=== PATIENT | male | born 1955 | race Caucasian/White ===

== ENCOUNTER 2017-05-02 02:07 | Inpatient (IN) | payer OTHER ==
--- NOTE | ~2017-05-02 | HP ---
History And Physical [facility] [address] [place]. [address] NAME: ROSELIA WU : 51 STATUS : ADM IN [facility]#: [id number] AGE: 62 ADM/REG DATE : 05/02/17 MR#: [id number] REPORT SERV DATE: 05/02/17 DICTATED BY: SANTINO FERMIN DATE: 05/02/17 REPORT STATUS : Draft TRANSCRIBED BY: MODL DATE: 05/02/17 DATE OF ADMISSION: 05/02/2017 ADMISSION DIAGNOSIS: Myocardial infarction. HISTORY OF PRESENT ILLNESS: Mr. Wu is a very pleasant 62-year-old male, who presented to [facility] via transfer from [facility] in [place], [place], for management of inferior myocardial infarction. He has no medical history and no cardiovascular history, but experienced what he describes as a pressure in his chest starting approximately 5 hours ago at 9:00 p.m. This involved the medial aspect of his left arm with a pain near his elbow and felt like indigestion in his opinion. Due to these symptoms, he presented to his local ER where an EKG was suggestive of ST elevations inferiorly. Given these findings, a code STEMI was activated and I discussed the case with the ER physician. Based on the description EKG in the clinical history, I agreed to bring the patient in for emergent cardiac catheterization. I briefly triaged him upon arrival to pathology laboratory director and confirmed the above history. He denied any palpitation, shortness of breath, syncope, nausea or vomiting. PAST MEDICAL HISTORY: The patient denies any chronic medical conditions. PAST SURGICAL HISTORY: Tonsillectomy. FAMILY HISTORY: Noncontributory. SOCIAL HISTORY: The patient does not use tobacco, alcohol, or illicits. He is . Lives in [place], [place]. REVIEW OF SYSTEMS: As per HPI. Otherwise, negative. PHYSICAL EXAMINATION: VITAL SIGNS: Heart rate upon arrival was 88, blood pressure is 128/81, and respiratory rate 16. GENERAL: Appears comfortable. HEENT: Sclerae anicteric; mucous membranes moist. NECK: No JVD. Thyroid not tender or enlarged CARDIOVASCULAR: Regular rhythm with normal S1/S2. No murmurs, rubs, or gallop. PULMONARY: Lung snow CTA. ABDOMEN: Soft and nontender. No masses EXTREMITIES: Warm, no edema. NEUROLOGIC: Grossly without deficits DIAGNOSTIC AND LABORATORY DATA: Labs pending at the time of dictation. EKG demonstrates sinus rhythm, ST elevations in 2, 3, AVF with reciprocal depressions in V1 History And Physical [address] [place]. [address] NAME: ROSELIA WU : 51 STATUS : ADM IN PAT#: [id number] AGE: 62 ADM/REG DATE : 05/02/17 MR#: [id number] REPORT SERV DATE: 05/02/17 DICTATED BY: SANTINO FERMIN DATE: 05/02/17 REPORT STATUS : Draft TRANSCRIBED BY: MODHemanth DATE: 05/02/17 through V3 consistent with inferior ST-elevation GA. IMPRESSION/RECOMMENDATIONS: Acute inferior ST-elevation myocardial infarction. I have recommended emergent cardiac catheterization with a plan for primary PCI based on the findings. The patient is hemodynamically stable and has mild chest discomfort at this time. He has been given aspirin and heparin, and we will give a P2Y12 receptor shortly. Further recommendations pending cardiac catheterization. STACIE/IDRIS Santino Fermin MD / [id number] CC: Santino Fermin MD
--- NOTE | ~2017-05-02 | OP ---
Record Of Operation [facility] [address] [place]. [address] NAME: ROSELIA WU : 51 STATUS : ADM IN PAT#: [id number] AGE: 62 ADM/REG DATE : 05/02/17 MR#: [id number] REPORT SERV DATE: 05/02/17 DICTATED BY: SANTINO FERMIN DATE: 05/02/17 REPORT STATUS : Draft TRANSCRIBED BY: MODL DATE: 05/02/17 DATE OF PROCEDURE: 05/02/2017 PROCEDURES PERFORMED: 1. Coronary angiography. 2. Left heart catheterization with left ventriculography. 3. Percutaneous coronary intervention to right coronary artery. INDICATIONS FOR PROCEDURE: Inferior ST-elevation UT. DETAILS OF PROCEDURE: The patient was prepped and draped in a sterile fashion. IV conscious sedation and local anesthetic were administered to the right radial artery access site. Access was obtained in the right radial artery with a short 6-Ukrainian slender sheath using a percutaneous technique. Radial cocktail was administered. A JL 3.5 catheter was advanced to the left coronary artery and diagnostic coronary angiography was performed. A JR4 guide catheter was advanced and used to cannulate the RCA. This demonstrated an anomalous left coronary artery and the guide was subsequently transitioned to a multipurpose guide catheter, which selectively cannulated the right coronary artery. Diagnostic findings are detailed below. Based on these findings, decision was made to proceed with percutaneous coronary intervention of the culprit right coronary artery occlusion. Angiomax was administered for anticoagulation. The lesion was crossed with a short Runthrough guidewire. Angioplasty was performed with a 2.5 balloon with multiple inflations restoring ABBIE-3 flow. The lesion was then stented with a 3.0 x 38 synergy VANESSA, which was post dilated with a 3.5 noncompliant balloon to 12 atmospheres. There was an excellent angiographic result with 0% residual lesion, no evidence of edge dissection and restored ABBIE-3 flow at the conclusion of the case. The guide catheter was removed and the aortic valve was crossed with an angled pigtail catheter. Hemodynamics were assessed and left ventriculography was performed in the WHITE projection. Hemostasis was obtained with a TR band. DIAGNOSTIC FINDINGS: 1. Left main coronary artery. The left main is widely patent with no luminal disease. 2. Left circumflex. Left circumflex has mild 30% ostial disease. Minimal irregularities are present in the proximal segment. The first obtuse marginal is a trivial size. The midcircumflex continues and terminates as a small second obtuse marginal branch. 3. Median ramus, there is a large distribution median ramus with a long concentric 80% to 90% lesion involving the proximal midsegment. A septal family service assistant arises from this lesion. There is ABBIE-3 flow distally. 4. LAD. 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 The vessel is widely patent and highly tortuous along its course with minimal luminal disease. Record Of Operation [facility] [address] [place]. [address] NAME: ROSELIA WU : 51 STATUS : ADM IN PAT#: [id number] AGE: 62 ADM/REG DATE : 05/02/17 MR#: [id number] REPORT SERV DATE: 05/02/17 DICTATED BY: SANTINO FERMIN DATE: 05/02/17 REPORT STATUS : Draft TRANSCRIBED BY: IDRIS DATE: 05/02/17 5. Right coronary artery. The right coronary artery has a downward takeoff and a total occlusion in the midsegment. HEMODYNAMICS: LVEDP 21. Aortic pressure 100/60. VENTRICULOGRAM: LV systolic function is preserved with EF estimated at 50%. Mild mid inferior wall hypokinesis is present. CONTRAST UTILIZATION: 200 mL. COMPLICATIONS: None. DISPOSITION: The patient will be admitted to the CCU. Anticipate stage PCI to the median ramus lesion at a future date. STACIE/IDRIS Santino Fermin MD / [id number] CC: Santino Fermin MD
[2017-05-02 03:34] LABS: BASOPHILS 0.2 %; BASOPHILS ABSOLUTE 0.02 10/3/uL (0.0-0.16); EOSINOPHILS 0.4 %; EOSINOPHILS ABSOLUTE 0.03 10/3/uL (0.0-0.53); HEMATOCRIT 35.6 % (40.0-51.0); HEMOGLOBIN 12.4 g/dL (13.6-17.8); IMMATURE GRANULOCYTES 0.1 %; IMMATURE GRANULOCYTES ABSOLUTE 0.01 10/3/uL (0.0-0.11); LYMPHOCYTES 15.6 %; LYMPHOCYTES ABSOLUTE 1.32 10/3/uL (0.67-4.30); MEAN CORPUS HGB CONC 34.8 g/dL (32.0-36.0); MEAN CORPUSCULAR HEMOGLOB 30.5 pg (26.0-34.0); MEAN CORPUSCULAR VOLUME 87.7 fL (80-100); MEAN PLATELET VOLUME 11.9 fL (9.2-13.0); MONOCYTES ABSOLUTE 0.42 10/3/uL (0.21-1.20); NEUTROPHILS 78.7 %; NEUTROPHILS ABSOLUTE 6.64 10/3/uL (2.02-8.40); PLATELET COUNT 115 10/3/uL (150-400); RBC DISTRIBUTION WIDTH 13.2 % (12.0-16.0); RED CELL COUNT 4.06 10/6/uL (4.7-6.1); WHITE BLOOD CELLS 8.4 10/3/uL (4.5-10.5)
[2017-05-02 03:37] LABS: MANUAL DIFF NO %
[2017-05-02 03:45] LABS: INTERNATIONAL NORMAL RATI 1.3 UNITS (-); PROTIME (NOT ORD) 16.1 SEC (12.0-14.5)
[2017-05-02 03:53] LABS: BUN (BLOOD UREA NITROGEN) 12 MG/DL (6-23); CALCIUM, SERUM 7.6 MG/DL (8.5-10.4); CHLORIDE, SERUM 113 MMOL/L (96-112); CO2 (CARBON DIOXIDE) 22 MMOL/L (24-34); CREATININE 0.92 MG/DL (0.70-1.30); GFR AFRICAN AMERICAN 102 ML/MIN (>=60); GFR NON AFRICAN AMERICAN 88 ML/MIN (>=60); GLUCOSE, SERUM 182 MG/DL (60-99); POTASSIUM, SERUM 3.1 MMOL/L (3.5-5.3); SODIUM, SERUM 145 MMOL/L (135-148)
[2017-05-02 03:54] LABS: PARTIAL THROMBO TIME 142.7 SEC (22.5-37.2)
[2017-05-02 03:55] LABS: CHEST PAIN PROFILE TAT 0 Hrs 26 Mins; TROPONIN I 0.49 NG/ML (<0.05)
[2017-05-02 05:37] LABS: BASOPHILS 0.2 %; BASOPHILS ABSOLUTE 0.02 10/3/uL (0.0-0.16); EOSINOPHILS 0.1 %; EOSINOPHILS ABSOLUTE 0.01 10/3/uL (0.0-0.53); HEMATOCRIT 37.8 % (40.0-51.0); HEMOGLOBIN 12.9 g/dL (13.6-17.8); IMMATURE GRANULOCYTES 0.3 %; IMMATURE GRANULOCYTES ABSOLUTE 0.03 10/3/uL (0.0-0.11); LYMPHOCYTES 9.1 %; LYMPHOCYTES ABSOLUTE 0.98 10/3/uL (0.67-4.30); MANUAL DIFF NO %; MEAN CORPUS HGB CONC 34.1 g/dL (32.0-36.0); MEAN CORPUSCULAR HEMOGLOB 30.3 pg (26.0-34.0); MEAN CORPUSCULAR VOLUME 88.7 fL (80-100); MONOCYTES ABSOLUTE 0.65 10/3/uL (0.21-1.20); NEUTROPHILS 84.3 %; NEUTROPHILS ABSOLUTE 9.11 10/3/uL (2.02-8.40); PLATELET COUNT 121 10/3/uL (150-400); RBC DISTRIBUTION WIDTH 13.4 % (12.0-16.0); RED CELL COUNT 4.26 10/6/uL (4.7-6.1); WHITE BLOOD CELLS 10.8 10/3/uL (4.5-10.5)
[2017-05-02 06:04] LABS: BUN (BLOOD UREA NITROGEN) 12 MG/DL (6-23); CALCIUM, SERUM 8.3 MG/DL (8.5-10.4); CHLORIDE, SERUM 110 MMOL/L (96-112); CHOLESTEROL 141 MG/DL (< 200); CK-MB 355.2 NG/ML; CKMB INDEX (NOT ORD) 13.7; CO2 (CARBON DIOXIDE) 25 MMOL/L (24-34); CPK 2601 U/L (0-200); CREATININE 0.99 MG/DL (0.70-1.30); GFR AFRICAN AMERICAN 93 ML/MIN (>=60); GFR NON AFRICAN AMERICAN 80 ML/MIN (>=60); GLUCOSE, SERUM 108 MG/DL (60-99); HDL CHOLESTEROL 47 MG/DL (> 39); LDL CHOLESTEROL 85 MG/DL (< 130); NON-HDL CHOLESTEROL 94 MG/DL (< 160); POTASSIUM, SERUM 4.3 MMOL/L (3.5-5.3); SODIUM, SERUM 142 MMOL/L (135-148); TRIGLYCERIDE 46 MG/DL (< 150)
[2017-05-02] MEDS ORDERED: *DENIES (10:34)
[2017-05-02 15:41] LABS: CKMB INDEX (NOT ORD) 10.4; POTASSIUM, SERUM 4.5 MMOL/L (3.5-5.3)
[2017-05-02 18:46] LABS: CREATININE 0.7 MG/DL (0.70-1.30)
[2017-05-02 20:44] LABS: CK-MB 255.2 NG/ML
[2017-05-02 20:46] LABS: CKMB INDEX (NOT ORD) 8.1
[2017-05-03 04:31] LABS: CK-MB 119.3 NG/ML
[2017-05-03 04:34] LABS: CKMB INDEX (NOT ORD) 5.3
[2017-05-03 07:46] LABS: CHOL/HDL RATIO(NOT ORDER) 2.9 (0-5)
[2017-05-03 11:03] LABS: BASOPHILS 0.3 %; BASOPHILS ABSOLUTE 0.03 10/3/uL (0.0-0.16); EOSINOPHILS 0.3 %; EOSINOPHILS ABSOLUTE 0.03 10/3/uL (0.0-0.53); HEMATOCRIT 39.4 % (40.0-51.0); HEMOGLOBIN 13.5 g/dL (13.6-17.8); IMMATURE GRANULOCYTES 0.2 %; IMMATURE GRANULOCYTES ABSOLUTE 0.02 10/3/uL (0.0-0.11); LYMPHOCYTES 12.6 %; LYMPHOCYTES ABSOLUTE 1.11 10/3/uL (0.67-4.30); MEAN CORPUS HGB CONC 34.3 g/dL (32.0-36.0); MEAN CORPUSCULAR HEMOGLOB 30.8 pg (26.0-34.0); MEAN CORPUSCULAR VOLUME 89.7 fL (80-100); MEAN PLATELET VOLUME 12.3 fL (9.2-13.0); MONOCYTES 9.9 %; MONOCYTES ABSOLUTE 0.87 10/3/uL (0.21-1.20); NEUTROPHILS 76.7 %; NEUTROPHILS ABSOLUTE 6.72 10/3/uL (2.02-8.40); PLATELET COUNT 110 10/3/uL (150-400); RBC DISTRIBUTION WIDTH 13.6 % (12.0-16.0); RED CELL COUNT 4.39 10/6/uL (4.7-6.1); WHITE BLOOD CELLS 8.8 10/3/uL (4.5-10.5)
[2017-05-03 11:04] LABS: MANUAL DIFF NO %
[2017-05-03 11:08] LABS: INTERNATIONAL NORMAL RATI 1.1 UNITS (-); PROTIME (NOT ORD) 14.4 SEC (12.0-14.5)
[2017-05-03 11:14] LABS: BUN (BLOOD UREA NITROGEN) 12 MG/DL (6-23); CALCIUM, SERUM 8.5 MG/DL (8.5-10.4); CHLORIDE, SERUM 110 MMOL/L (96-112); CO2 (CARBON DIOXIDE) 25 MMOL/L (24-34); CREATININE 0.88 MG/DL (0.70-1.30); GFR AFRICAN AMERICAN 105 ML/MIN (>=60); GFR NON AFRICAN AMERICAN 91 ML/MIN (>=60); GLUCOSE, SERUM 92 MG/DL (60-99); POTASSIUM, SERUM 4.3 MMOL/L (3.5-5.3); SODIUM, SERUM 142 MMOL/L (135-148)
[2017-05-03 17:51] LABS: CK-MB 38.1 NG/ML; CKMB INDEX (NOT ORD) 3.3
[2017-05-04 05:56] LABS: HEMATOCRIT 37.6 % (40.0-51.0)
[2017-05-04 06:11] LABS: BUN (BLOOD UREA NITROGEN) 12 MG/DL (6-23); CALCIUM, SERUM 8.4 MG/DL (8.5-10.4); CHLORIDE, SERUM 109 MMOL/L (96-112); CK-MB 18.5 NG/ML; CO2 (CARBON DIOXIDE) 24 MMOL/L (24-34); CPK 768 U/L (0-200); CREATININE 0.89 MG/DL (0.70-1.30); GFR AFRICAN AMERICAN 105 ML/MIN (>=60); GFR NON AFRICAN AMERICAN 90 ML/MIN (>=60); GLUCOSE, SERUM 86 MG/DL (60-99); POTASSIUM, SERUM 4.1 MMOL/L (3.5-5.3); SODIUM, SERUM 139 MMOL/L (135-148)
[2017-05-04 06:12] LABS: CKMB INDEX (NOT ORD) 2.4
[2017-05-04] MEDS ORDERED: ASAB PO (08:43)
[2017-05-04] MEDS ORDERED: LIPITOR80 MG PO (08:43)
[2017-05-04] MEDS ORDERED: COREG3 PO (08:44)
[2017-05-04] MEDS ORDERED: NTG150 SL (08:45)
[2017-05-04] MEDS ORDERED: BRILINTA90 MG PO (08:45)
[2017-05-04] MEDS ORDERED: PRIN2.5 PO (08:45)
== END 2017-05-04 10:21 | disposition home or self-care (01) | DRG 247 ==
LOC: SSU2 02:07 → CCU 04:11 → SSU1 05-03 16:38
PROVIDERS: Internal Medicine Cardiovascular Disease
DX: I21.19 ST elevation (STEMI) myocardial infarction involving other coronary artery of inferior wall (principal); I25.10 Atherosclerotic heart disease of native coronary artery without angina pectoris; Z98.890 Other specified postprocedural states
CPT/HCPCS: 71010; 80048; 80061; 82550; 82553; 82565; 83735; 84132; 84295; 84484; 85014; 85018; 85025; 85347; 85610; 85730; 87641; 93005; 93306; 93458; 99152; 99153; A9270-GY; C1713; C1725; C1769; C1874; C1887; C1894; C9600; C9606; J0583; J2250; J2370; J3010; Q9967